=== PATIENT | female | born 1995 | race Caucasian/White ===

== ENCOUNTER 2021-11-04 09:44 | Inpatient (IN) ==
[2021-11-04] MEDS ORDERED: Famotidine 20 MG/2 ML VIAL IVP PRN (10:00)
[2021-11-04] MEDS ORDERED: Naloxone 0.4 MG/ML INJ IVP PRN (10:00)
[2021-11-04] MEDS ORDERED: Metoclopramide 10 MG/2 ML VIAL IVP PRN (10:00)
[2021-11-04] MEDS ORDERED: Ondansetron 4 MG/2 ML VIAL IVP PRN (10:00)
[2021-11-04 10:57] LABS: Amphetamine Screen,Urine Negative ng/mL (Cutoff=1000); Barbiturate Screen,Urine Negative ng/mL (Cutoff=200); Benzodiazepines Screen,Urine Negative ng/mL (Cutoff=200); Cannabinoid Screen,Urine Negative ng/mL (Cutoff = 50); Cocaine Screen,Urine Negative ng/mL (Cutoff= 300); Creatinine,Urine 182 mg/dL; Opiate Screen,Urine Negative ng/mL (Cutoff=300); Phencyclidine Screen,Urine Negative ng/mL (Cutoff=25); Protein/Creatinine Ratio,Urine 0.21 mg/mg (0.00-0.20)
[2021-11-04 11:07] LABS: Basophils % 0.2 %; Eosinophils % 0.4 %; Hematocrit 38.7 % (35.3-44.9); Hemoglobin 13.1 g/dL (11.5-15.4); Immature Granulocytes % 0.7 % (0-4); Lymphocytes # 1.6 K/mcL (0.6-4.6); Lymphocytes % 14.7 %; Mean Corpuscular HGB Conc 33.9 g/dL (31.6-35.5); Mean Corpuscular Hemoglobin 31.1 pg (28.0-33.3); Mean Corpuscular Volume 91.9 fL (83.0-100.0); Mean Platelet Volume 11.7 fL (9.4-12.4); Monocytes # 0.9 K/mcL (0.0-1.3); Monocytes % 8.4 %; Neutrophils # 8.5 K/mcL (1.6-8.9); Platelet Count 221 K/mcL (140-400); Red Blood Count 4.21 M/mcL (3.82-4.97); Red Cell Distribution Width 13.1 % (11.5-14.5); Segmented Neutrophils % 75.6 %; White Blood Count 11.2 K/mcL (4.3-11.1)
[2021-11-04 11:12] LABS: Alanine Aminotransferase 9 Units/L (7-52); Aspartate Amino Transferase 14 Units/L (13-39); BUN/Creatinine Ratio 22 (6-26); Blood Urea Nitrogen 14 mg/dL (6-20); Glucose 82 mg/dL (70-105); Lactate Dehydrogenase 140 Units/L (140-271); Uric Acid 4.8 mg/dL (2.3-7.6); eGFR For African Americans > 60 (> 60); eGFR For Non-African Americans > 60 (> 60)
[2021-11-04] MEDS ORDERED: miSOPROStoL 25 MCG TABLET VG SCH (12:00)
[2021-11-04] MEDS ORDERED: EPHEDrine 50 MG/ML VIAL IVP PRN (12:37)
[2021-11-04] MEDS ORDERED: Epidural Premix (fent/bupiv) 110 ML EP SCH (12:45)
[2021-11-04] MEDS: *HR* Nalbuphine 10 MG/ML AMPUL IV PRN ×2 (13:30→15:38)
[2021-11-04] MEDS: Ringers Solution, Lactated 1,000 ML IVC SCH (15:37)
[2021-11-04] MEDS: Oxytocin 30 UNIT/503 ML BAG IVC SCH (15:41)
[2021-11-05] MEDS: Ringers Solution, Lactated 1,000 ML IVC SCH (00:56)
[2021-11-05] MEDS ORDERED: Acetaminophen 325 MG TABLET PO ONE (04:42)
[2021-11-05] MEDS: Oxytocin 30 UNIT/503 ML BAG IVC SCH (10:45)
[2021-11-05] MEDS ORDERED: Ondansetron ODT 4 MG TAB.RAPDIS SL PRN (11:16)
[2021-11-05] MEDS ORDERED: Lanolin 7 G OINT...G. TP PRN (11:16)
[2021-11-05] MEDS ORDERED: Oxytocin 30 UNIT/503 ML BAG IVC SCH (11:16)
[2021-11-05] MEDS ORDERED: *HR* OxyCODONE Immed Rel 5 MG TABLET PO PRN (11:16)
[2021-11-05] MEDS ORDERED: Benzocaine/Menthol 56 GM AEROSOL SPRAY TP PRN (11:16)
[2021-11-05] MEDS ORDERED: OXYTOCIN/RINGERS LACTATE 10 UNIT/166.6 ML BAG IVC ONE (11:16)
[2021-11-05] MEDS: Prenatal Vit/FA 1 EACH TABLET PO SCH (11:17)
[2021-11-05] MEDS: Ibuprofen 600 MG TABLET PO SCH ×2 (12:14→20:32)
[2021-11-05] MEDS: Acetaminophen 325 MG TABLET PO SCH (15:33)
[2021-11-06] MEDS: Ibuprofen 600 MG TABLET PO SCH (04:20)
[2021-11-06] MEDS: Acetaminophen 325 MG TABLET PO SCH (04:20)
[2021-11-06 05:43] LABS: Hematocrit 28.6 % (35.3-44.9); Mean Corpuscular HGB Conc 33.2 g/dL (31.6-35.5); Mean Corpuscular Hemoglobin 31.6 pg (28.0-33.3); Platelet Count 150 K/mcL (140-400); Red Blood Count 3.01 M/mcL (3.82-4.97); Red Cell Distribution Width 13.5 % (11.5-14.5); Segmented Neutrophils % 76.8 %; White Blood Count 14.1 K/mcL (4.3-11.1)
[2021-11-06 05:44] LABS: Basophils % 0.1 %; Eosinophils # 0.1 K/mcL (0.0-0.6); Eosinophils % 0.4 %; Hemoglobin 9.5 g/dL (11.5-15.4); Immature Granulocytes % 0.9 % (0-4); Lymphocytes # 1.9 K/mcL (0.6-4.6); Lymphocytes % 13.7 %; Monocytes # 1.1 K/mcL (0.0-1.3); Monocytes % 8.1 %; Neutrophils # 10.8 K/mcL (1.6-8.9)
[2021-11-06 07:59] VITALS: BP 114/72; PULSE 99; TEMP 98; O2SAT 98
[2021-11-06] MEDS: Prenatal Vit/FA 1 EACH TABLET PO SCH (08:46)
== END 2021-11-06 12:03 | disposition home or self-care (01) | DRG 560 ==
LOC: 1NENULAB 09:44 → 1NENUOBS 11-05 11:16
PROVIDERS: ADMIT Obstetrics & Gynecology; ATTEND Obstetrics & Gynecology